=== PATIENT | male | born 1975 | race African-American/Black ===

== ENCOUNTER 2017-04-30 23:00 | Emergency (ER) | payer OTHER, MEDICAID ==
[~2017-04-30] VITALS: Ht 182.9 cm; Wt 91.0 kg
[2017-04-30] MEDS ORDERED: KETAMINE HCL 50 MG/ML 10ML IV ONE (23:45)
[2017-04-30] MEDS ORDERED: MORPHINE SULFATE 4 MG/ML CPJ (NOT FOR IM USE) IV ONE (23:45)
[2017-04-30] MEDS ORDERED: ONDANSETRON HCL 4MG/2ML VIAL IV ONE (23:45)
[2017-05-01] MEDS ORDERED: KETAMINE HCL 50 MG/ML 10ML IV ONE ×2 (00:30→00:45)
[2017-05-01] MEDS ORDERED: LORAZEPAM 2MG/ML CPJ IV ONE (00:30)
[2017-05-01 05:40] VITALS: BP 133/75
== END 2017-05-01 05:56 | disposition home or self-care (01) ==
LOC: ER 23:00
DX: S43.004A Unspecified dislocation of right shoulder joint, initial encounter (principal); X58.XXXA Exposure to other specified factors, initial encounter; Y93.89 Activity, other specified; Y92.89 Other specified places as the place of occurrence of the external cause; Y99.8 Other external cause status; F17.200 Nicotine dependence, unspecified, uncomplicated
CPT/HCPCS: 23650; 73020; 96374; 96375; 99152; 99153; 99285; J2060; J2270; J2405; J3490; Z7610; A4565; L3670